=== PATIENT | male | born 1975 | race Caucasian/White ===

== ENCOUNTER → 2017-09-27 | Outpatient (CLI) | payer OTHER ==
--- NOTE | 2017-09-28 15:06 | RAD ---
EXAM DESCRIPTION: Fingers,Left CLINICAL HISTORY: 42 years Male, PAIN IN LEFT HAND COMPARISON: None. TECHNIQUE: Left index finger three x-ray views FINDINGS: Soft tissue swelling around the PIP joint is noted. No radiopaque foreign body, fracture or dislocation. Normal bony mineralization and trabecular pattern. IMPRESSION: Negative for fracture. Electronically signed by: Robert Sparks MD 09/28/2017 3:05 PM CDT
== END ==
LOC: LAB.O 13:39
PROVIDERS: ATTEND Nurse Practitioner Family
DX: M79.642 Pain in left hand (principal); M10.9 Gout, unspecified

== ENCOUNTER → 2018-02-23 | Outpatient (CLI) | payer OTHER ==
--- NOTE | 2018-02-23 12:40 | RAD ---
EXAM DESCRIPTION: Foot,Right 2 x-ray Views CLINICAL HISTORY: 43 years, Male, FOOT PAIN COMPARISON: None TECHNIQUE: AP, lateral views of the right foot FINDINGS: Mild degenerative narrowing at the first metatarsal phalangeal joint with spurring at the base of the proximal phalanx of the great toe. Lateral view shows intact talus and calcaneus. Small dorsal and plantar calcaneal enthesophytes are present. There is no other bone, joint, or soft tissue abnormality observed. There is no radiopaque foreign body. IMPRESSION: Plantar calcaneal spur. Degenerative changes at the first metatarsal phalangeal joint. Electronically signed by: Robert Sparks MD 02/23/2018 12:38 PM CDT
== END ==
LOC: YCFC.O 11:12
PROVIDERS: ATTEND Nurse Practitioner Family
DX: M77.31 Calcaneal spur, right foot (principal); M12.871 Other specific arthropathies, not elsewhere classified, right ankle and foot; I10 Essential (primary) hypertension; M79.609 Pain in unspecified limb

== ENCOUNTER → 2019-03-06 | Outpatient (CLI) | payer OTHER ==
--- NOTE | 2019-03-06 18:22 | RAD ---
EXAM: XR Right Fingers, 2 or More Views CLINICAL HISTORY: GOUT TECHNIQUE: Frontal, lateral and oblique views of the fingers of the right hand. COMPARISON: No relevant prior studies available. FINDINGS: Limitations: None. Bones/joints: There is of the palmar surface erosion distal aspect of the third proximal phalanx. There is no fracture or dislocation. Soft tissues: Soft tissue swelling of the third finger noted. No soft tissue gas. No soft tissue calcification noted. No radiopaque foreign body. IMPRESSION: Erosion involves the distal aspect of the third proximal phalanx consistent with gout. Electronically signed by: Therese Andrew MD 03/06/2019 6:20 PM CDT
== END ==
LOC: RAD 17:36
PROVIDERS: ATTEND Nurse Practitioner Family
DX: M10.9 Gout, unspecified (principal)